=== PATIENT | male | born 1990 | race Hispanic/Latino ===

== ENCOUNTER 2017-02-20 11:53 | Emergency (ER) | payer OTHER ==
[2017-02-20 12:26] VITALS: PULSE 88; RESP 16; TEMP 98; O2SAT 100
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
== END 2017-02-20 14:47 | disposition home or self-care (01) ==
LOC: H.ER 11:53
DX: S43.401A Unspecified sprain of right shoulder joint, initial encounter (principal); S09.90XA Unspecified injury of head, initial encounter; S00.83XA Contusion of other part of head, initial encounter; S63.616A Unspecified sprain of right little finger, initial encounter; S02.5XXA Fracture of tooth (traumatic), initial encounter for closed fracture; W19.XXXA Unspecified fall, initial encounter; Y92.410 Unspecified street and highway as the place of occurrence of the external cause